=== PATIENT | male | born 1985 | race Caucasian/White ===

== ENCOUNTER 2020-07-28 08:00 | Outpatient (RCR) | payer OTHER, SELFPAY ==
[2020-07-13 14:43] VITALS: BMI 22.4
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
--- NOTE | 2020-07-14 08:22 | PC.ADMIT ---
Patient is a 35 year old male who was referred to [facility] by Elke Holman from [facility] d/t patients increase in depression with passive SI and PTSD sxs. 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 Patient stated he is feeling overwhelmed at work. Patient using Marijuana and has increased ETOH use to cope with how he is feeling. Patient appears motivated for treatment. Stated he is here, to help myself . Patient presents with depressed mood and blunted affect. Denied current SI. Patient gave verbal permission to email him a copy of his safety plan. Patient reports hx of abusing pain medication 10 years ago and has noticed his ETOH use increasing in the evenings drinking 3-4 drinks a few nights a week. He recognized that this was not a good pattern with his hx of addiction and wants more support to learn healthier ways to cope. Reports last drink was last Saturday and wants to continue not to drink. Patient also reports that he smokes too much marijuana and smokes a few bowls with his at night. He stated they both are trying to quit. Patient has information about online substance use groups and recommended that he attend along with attending PHP for more support.
--- NOTE | 2020-07-19 15:38 | PM.EVENT ---
Event Note Date of Service: 07/19/20 Event Note: Pt did not attend scheduled medication review appointment 1:30pm today.
--- NOTE | 2020-07-20 13:52 | PC.NURSE ---
With patient's permission, I called and put in a referral for [facility]. They took demographic information and said they will call pt with intake information for a therapist and for a medication provider.
--- NOTE | 2020-07-22 08:35 | PC.NURSE ---
Patient called out as he was not feeling well today and attributes this to Wellbutrin which he started 6-7 days ago. He stated he initally was feeling well however he did not feel well yesterday and did not sleep last night. Reports increased anxiety and difficulty staying still. Reports sweating and crying a lot which is unusual for him. Stated he was feeling hopeless and was having difficulty concentrating. He stated he took the Wellbutrin this morning. Patient is going to stop the medication. Asked if he was having any suicidal thoughts and he stated he was not, he stated that he does not want to kill himself he just feels horrible. Stated he is currently with his . Kishan Lott APRN is aware. If symptoms worsen patient directed to go to the ER.
--- NOTE | 2020-07-22 12:49 | P.EN_ITS ---
Event Note Date of Service: 07/22/20 Event Note: Asked to call pt re medication questions. Pt reports he has been t aking Wellbutrin XL 150 mg daily for the past 6-7 days. Reports SE-anxiety, sweats, crying, lability, insomnia, inability to remain still and feeling uncomfortable, jittery and unable to think clearly. Also reports constipation and sweats in the evening. He is also using Clonidine 0.1 mg hs. Discussed holding the medication over the weekend, continuing Clonidine and having a re- evaluation on 07/25/20 of symptoms which he agrees is appropriate. Pt able to make a plan to call or use the ER should symptoms continue. No current safety issues of concern per pt report.
--- NOTE | 2020-07-26 14:07 | HO.PHPPROGNO ---
Subjective Subjective Date of Service: 08/04/20 Reason For Visit: depression Interim History: Pt reports he had wellbutrin and felt more agitated. He also reports at end of day feeling more dysregulated, crying easily. He reports once he stopped wellbutrin it resolved. He reports he did not try clonidine. He continues to report poor sleep. He continues to report anhedonia, depressed mood. He denies SI/HI. He reports PHP has been helpful. Medication Compliance: No Side effects from medications: No Attending Groups: Yes Mental Status Exam Mental Status Exam Narrative: Appearance: casually groomed, fair hygiene, in NAD Behavior: calm, cooperative Psychomotor: no agitation or retardation noted Speech: clear, normal rate/rhythm/volume, spontaneous TP: linear TC: no signs of psychosis, hopeless/helpless, low self-steem Mood: depressed, stuck Affect:blunted SI:passive, no plan or intent HI:none AH/VH: none Delusions:none Insight/judgment:fair x 2 Memory/cog: alert, oriented x 3. grossly intact to conversational testing. Diagnostics Vital Signs (24Hr): Body Mass Index 22.4 Assessment & Plan Assessment & Plan (1) MDD (major depressive disorder), recurrent episode, moderate: Status: Acute Code(s): F33.1 - Major depressive disorder, recurrent, moderate Assessment and Plan: 1. D/C wellbutrin. 2. We discussed strating Venlafaxine ER 37.5mg po daily with plan to titrate. (2) Cannabis use disorder, mild, abuse: Status: Acute Code(s): F12.10 - Cannabis abuse, uncomplicated Certification I certify that partial hospital treatment is medically necessary due to the symptoms and problems resulting from the patient's mental illness and the failure to treat the patient at the partial hospital level of care would likely result in the patient requiring inpatient psychiatric care which could not be prevented at a less intensive level of care. Greater than 50% of the session was spent on counseling and/or coordination of care Discharge Plan Discharge Attending provider: Mario Qureshi Additional Instructions: Telehealth appointment with Rianna Brito at [facility] for individual therapy on 07/25/2020 at 4pm. Telehealth appointment with Mikaela Angeles at [facility] for a medication management evaluation on 08/24/2020 at 4pm (1 hour). Telehealth follow-up appointment with Mikaela Angeles at [facility] for medication management on 09/20/2020 at 4:40pm (20 minutes). Medications: New venlafaxine [Effexor XR] 37.5 mg capsule,extended release 24hr 37.5 mg PO DAILY Qty: 10 RF: 0
--- NOTE | 2020-07-28 16:23 | PC.NURSE ---
I called and spoke to pt at his request. He shared that he has an appt tomorrow, on his scheduled last day. I asked if he wanted to come in on Saturday, and he declined. he said he feels good, and wants to discharge from [facility]. He praised staff and the PHP program.
== END 2020-07-28 23:55 | disposition home or self-care (01) ==
LOC: HO.PHPA 08:00
PROVIDERS: Visit Provider Psychiatry & Neurology Psychiatry
DX: F33.1 Major depressive disorder, recurrent, moderate (principal); F12.10 Cannabis abuse, uncomplicated
CPT/HCPCS: 90853

== ENCOUNTER 2020-11-11 09:01 | Outpatient (REF) | payer OTHER, SELFPAY ==
--- NOTE | 2020-11-11 11:02 | MHC.AU.ANO ---
Adult Audiological Evaluation Date of Visit: 11/11/20 Reason for Appointment: Patient has been noticing difficulty hearing during conversations. He reports that he hears most of what people say, but misses certain sounds and parts of words, which has caused misunderstandings and frustration. He feels he has more trouble hearing in background noise or when he is talking to people outside. 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 He reports there was a time earlier in his career that he did not routinely have hearing protection at work; however, he has since begun to wear hearing protection consistently. He also wears hearing protection when he plays his drums. History of PE tubes in childhood. History of frequent cerumen buildup- he uses drops and flushes his ears on a regular basis. Does patient feel they have a hearing loss?: Yes If Yes, Which Ear?: Both Ears Has hearing been tested previously?: Yes Previous Hearing Test Results: Last tested in childhood Ear History: Ear Deformity: None Reported Recent Ear Drainage: None Reported Recent Ear Pain: None Reported Family History of Hearing Loss?: Yes: Father, Grandfather Recent Ear Infections: None Reported Ear Infections in Childhood: Both Ears History of Ear Wax Buildup: Both Ears Previous Ear Surgery: PE tubes in childhood Bothersome Tinnitus/Ringing/Noises in Ears: None Reported Blocked/Full Sensation in Ear(s): None Reported 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 Scarring on tympanic membrane. Left Ear: Small amount of cerumen. Tympanic membrane visible. Tympanometry: Tympanometry performed due to: To assess integrity of the middle ear system Right Ear: Normal Middle Ear System (Type A) Left Ear: Normal Middle Ear System (Type A) Otoacoustic Emissions Frequency Range Used: 1.6-8 kHz Right Ear Results: Reduced Emissions 1.6-8 kHz Analysis: Reduced/Absent emissions suggest cochlear dysfunction Results are consistent with degree and configuration of hearing loss Left Ear Results: Reduced 1.5-5 kHz, Normal 6-8 kHz Analysis: Reduced/Absent emissions suggest cochlear dysfunction Results are consistent with degree and configuration of hearing loss Hearing Evaluation: Transducer(s) Used: Insert Earphones Method: Conventional Audiometry Stimuli Used: Pure Tones Right Ear: Description of Hearing: Borderline-normal sloping to mild sensorineural hearing loss and rising to normal Left Ear: Description of Hearing: Borderline-normal sloping to mild sensorineural hearing loss and rising to normal Speech Recognition Threshold (SRT): Method Used: Recorded Lists Stimuli Used: Spondee Words Right Ear: 20 dBHL Left Ear: 25 dBHL Word Discrimination: Method: Recorded Lists Word Lists Used: NU-6 Right Ear: 100% at 60 dBHL Left Ear: 100% at 60 dBHL Most Comfortable Level (MCL): Right Ear: 60 dBHL Left Ear: 60 dBHL QuickSIN: Tested binaurally at 60 dBHL. SNR loss of 2 dB, which indicates normal/average level of difficulty hearing in noise Recommendations: Audiological re-evaluation in 1-2 years, or sooner if changes are noted. Amplification is not warranted at this time. Continued use of hearing protection in loud environments. To help support patient's hearing: -Minimize background noise when possible. -Speak in a clear voice, from a close distance, and [id number]. -Gain the patient's full attention prior to talking. Diagnosis: Primary Diagnosis: H90.3 Bilateral Sensorineural Hearing Loss Services Performed: Comprehensive Audiological Evaluation (CPT 50010), Limited Otoacoustic Emissions (CPT 22383), Tympanometry (CPT 38707) Signature: Provider: Mine Pelayo, [facility]
== END 2020-11-11 09:02 | disposition home or self-care (01) ==
LOC: HO.SH 09:01
PROVIDERS: Visit Provider Physician Assistant
DX: H90.3 Sensorineural hearing loss, bilateral (principal)
CPT/HCPCS: 92557; 92567; 92587